=== PATIENT | male | born 1960 | race Caucasian/White ===

== ENCOUNTER 2018-08-20 10:19 | Day surgery (SDC) | payer BC ==
[~2018-08-20 10:19] MED LIST: ACETAMINOPHEN 1,000 MG/100 ML BTL IV ONE
[2018-08-20] MEDS ORDERED: MIDAZOLAM HCL 2MG/2ML VIAL IV ONE (10:20)
[2018-08-20] MEDS ORDERED: LIDOCAINE 2% MDV (20MG/ML) 20ML VIAL IV ONE (10:20)
[2018-08-20] MEDS ORDERED: FENTANYL PF 100MCG/2ML VIAL IV ONE (10:20)
[2018-08-20] MEDS ORDERED: ONDANSETRON HCL IV 4 MG/2 ML VIAL IVP ONE (10:20)
[2018-08-20] MEDS ORDERED: SEVOFLURANE 250 ML INH ONE (10:20)
[2018-08-20] MEDS ORDERED: PROPOFOL 10 MG/ML VIAL IV ONE (10:20)
[2018-08-20] MEDS ORDERED: BUPIVACAINE LIPOSOME/PF 133MG/10ML VIAL IV ONE (10:20)
[2018-08-20] MEDS ORDERED: EPINEPHRINE 1 MG/ML AMPUL SQ ONE (10:20)
[2018-08-20] MEDS ORDERED: EPHEDRINE SULFATE 50 MG/ML ML IV ONE (10:20)
[2018-08-20] MEDS ORDERED: BUPIVACAINE 0.5% (5MG/ML) PF 30ML VIAL IVP ONE (10:20)
[2018-08-20] MEDS ORDERED: KETOROLAC 30 MG/ML VIAL IVP ONE (10:20)
[2018-08-20] MEDS ORDERED: DEXAMETHASONE 4 MG/ML 1ML VIAL IVP ONE (10:20)
--- NOTE | 2018-08-21 10:30 | Operative Note ---
DATE OF SURGERY: 08/20/2018 Surgeon: Keron Núñez DO PREOPERATIVE DIAGNOSES: 1. Re-tear of the right rotator cuff. 2. Impingement syndrome, right shoulder. POSTOPERATIVE DIAGNOSES: 1. Re-tear of the right rotator cuff. 2. Impingement syndrome, right shoulder. OPERATION: 1. Arthroscopic repair of the right rotator cuff. 2. Arthroscopic subacromial decompression and acromioplasty of the right shoulder. DESCRIPTION OF PROCEDURE: This 58-year-old male was taken to the operating room and placed in the supine position on the operating room table. General anesthesia was induced. He was placed in the beach chair position with all bony prominences well padded, the head well secured. The right shoulder was prepped with Hibiclens and draped in the usual sterile fashion. A posterior portal was established in the glenohumeral joint of the right shoulder. Initial evaluation of the joint demonstrated normal appearance of the articular cartilage. He had some superficial fraying of the insertion of the subscapularis but no full-thickness defect was identified. Superiorly, there was some superficial scuffing of the labrum, and that was debrided with a rotating shaver to the anterior portal but the new labrum was not detached from the bony glenoid. The biceps appeared normal. The inferior aspect of the supraspinatus demonstrated longitudinal tears as suggested on the MRI. This was debrided from the other surface. We then placed the scope in the subacromial space, and serial subacromial decompression and acromioplasty were performed. We debrided the superior aspect of the rotator cuff in this area, and this was confirmed to be the same area because we had placed a Prolene suture through this area to alon it, and then easily able to visualize it after we were in the subacromial space. The damaged tissue was released. There was a lot of bursal tissue which was debrided and some retraction of the supraspinatus was present. We were not able to bring all the tendon back to its anatomic position but were able to bring the infraspinatus anteriorly to some degree to sew [id number] to the supraspinatus. After we debrided the rotator cuff, we also debrided the tuberosity and placed #2 FiberWire sutures in a [id number] fashion. Three of these were placed from medial to lateral. The tails were left on the sutures of the last stitch placed, and these were passed through a SwiveLock anchor to bring them down and compress them to the bony tuberosity. This was felt to form a satisfactory repair. The wound was irrigated with lactated Ringer's solution, and the instruments were removed. The portals were irrigated and closed with 4-0 nylon suture. Sterile dressings were applied with a sling and the patient taken to the recovery room in satisfactory condition. GROSS PATHOLOGY: This patient demonstrated a re-tear of the rotator cuff. We did see several of the FiberTape sutures that were used for the original repair, and they were still intact. We did not release them. We did repair the longitudinal tear of the supraspinatus with a [id number] fashion, which I felt gave us repair of this tissue. CC: Kacy [id number]
== END 2018-08-20 14:45 | disposition home or self-care (01) ==
LOC: SUR 10:19
PROVIDERS: ATTEND Orthopaedic Surgery
DX: M75.101 Unspecified rotator cuff tear or rupture of right shoulder, not specified as traumatic (principal); M75.41 Impingement syndrome of right shoulder; I10 Essential (primary) hypertension
CPT/HCPCS: 29827; 01630; 64415; 93005; J1885; J2405; J3010; C9290; 76942; J0171